=== PATIENT | female | born 1955 | race Caucasian/White ===

== ENCOUNTER → 2016-09-16 | Outpatient (CLI) | payer MEDICARE, OTHER | LOC: KOH-I 13:00 | DX: R10.32 Left lower quadrant pain (principal); R19.7 Diarrhea, unspecified; Z98.890 Other specified postprocedural states | CPT/HCPCS: 74176 ==

== ENCOUNTER → 2016-09-20 | Outpatient (CLI) | payer MEDICARE, OTHER | LOC: NM 14:30 | DX: R19.7 Diarrhea, unspecified (principal) | CPT/HCPCS: 78227; A9537; J2805 ==

== ENCOUNTER 2020-05-08 15:16 | Emergency (ER) | payer MEDICARE, OTHER ==
[~2020-05-08 15:16] MED LIST: ALL DAY ALLERGY10 MG PO; BYDUREON P2 MG/0.65 SQ; CYMBALTA60 MG PO; FLONASE 0.05% N16 GM; GLUCOPHAGE1000 MG PO; HUMALOG MI100 UNIT/2 SQ; LANTUS100 UNIT/1 SQ; LISINOPRIL-HCT1 EAC2 PO; LISPRO INSULIN; NEURONTIN600 MG PO; NORCO 7.5-3251 EACH PO; NORVASC2.5 MG PO; OZEMPIC1 MG/0.75 SQ; SIMVASTATIN20 MG PO; SYNTHROID200 MCG PO; TOPROL XL50 MG PO; VESICARE 5 MG TA5 MG PO; VITAMIN D32000 UNI1 PO
[2020-05-08 17:16] LABS: HEMOGLOBIN 12.7 gm/dl (12.3-15.3); RED BLOOD COUNT 4.53 M/UL (4.00-5.10); WHITE BLOOD COUNT 5.9 K/UL (4.5-11.0)
[2020-05-08 17:38] LABS: BUN/CREATININE RATIO 18 (0-10)
[2020-05-08] MEDS ORDERED: ZITHROMAX250 MG PO (19:05)
[2020-05-08] MEDS ORDERED: ATROVENT-HFA12.9 GM INH (19:05)
== END 2020-05-08 22:05 | disposition home or self-care (01) ==
LOC: ER1 15:16
PROVIDERS: Family Medicine
DX: U07.1 COVID-19 (principal); E11.9 Type 2 diabetes mellitus without complications; I10 Essential (primary) hypertension; Z79.4 Long term (current) use of insulin; Z79.899 Other long term (current) drug therapy
CPT/HCPCS: 71045; 80053; 83615; 85025; 86140; 99283; M0239

== ENCOUNTER → 2020-06-20 | Outpatient (CLI) | payer MEDICARE, OTHER ==
[~2020-06-20] MED LIST changes: +ATROVENT-HFA12.9 GM INH; +ZITHROMAX250 MG PO
[2020-06-20 12:30] LABS: BUN/CREATININE RATIO 23 (0-10)
[2020-06-21 09:15] LABS: CREATININE, URINE 83.6 mg/dL (Not Estab.); MICROALB/CREAT RATIO <4 (0-29)
== END ==
LOC: LAB 10:20
PROVIDERS: Internal Medicine
DX: E11.40 Type 2 diabetes mellitus with diabetic neuropathy, unspecified (principal)
CPT/HCPCS: 36415; 80048; 80061; 82043; 82570; 83036; 84443

== ENCOUNTER → 2020-10-24 | Outpatient (CLI) | payer MEDICARE, OTHER ==
[2020-10-25 09:14] LABS: VITAMIN D, 25-HYDROXY 20.3 ng/mL (30.0-100.0)
[2020-10-25 11:14] LABS: RHEUMATOID ARTHRITIS FACTOR <10.0 IU/mL (0.0-13.9)
[2020-10-26 00:09] LABS: CCP ANTIBODIES IGG/IGA 12 units (0-19)
== END ==
LOC: LAB 09:49
PROVIDERS: Nurse Practitioner Family
DX: D89.9 Disorder involving the immune mechanism, unspecified (principal); M25.50 Pain in unspecified joint; R76.8 Other specified abnormal immunological findings in serum; R53.83 Other fatigue; I73.00 Raynaud's syndrome without gangrene; E55.9 Vitamin D deficiency, unspecified; E11.9 Type 2 diabetes mellitus without complications; E11.51 Type 2 diabetes mellitus with diabetic peripheral angiopathy without gangrene
CPT/HCPCS: 36415; 82550; 82728; 83520; 85652; 86140; 86200; 86431

== ENCOUNTER → 2020-12-25 | Outpatient (CLI) | payer MEDICARE, OTHER | LOC: KOH-I 13:50 | DX: R51.9 Headache, unspecified (principal) | CPT/HCPCS: 70450 ==

== ENCOUNTER → 2021-12-31 | Outpatient (CLI) | payer MEDICARE, OTHER | LOC: SLEEP 14:15 | DX: G47.33 Obstructive sleep apnea (adult) (pediatric) (principal) | CPT/HCPCS: 95811 ==